=== PATIENT | female | born 1940 | race Caucasian/White ===

== ENCOUNTER 2019-08-31 07:14 | Outpatient (CLI) | payer MEDICARE, BC, SELFPAY ==
[2019-08-31 08:32] LABS: Basophils Percent Auto 0.3 % (0.2-1.2); Eosinophils Absolute Auto 0.1 K/mm3 (0-0.3); Eosinophils Percent Auto 1.1 % (0-4.4); Hematocrit 39.5 % (37.0-47.0); Immature Granulocyte Absolute 0.02 K/mm3 (0.00-0.031); Immature Granulocyte Percent A 0.3 % (0-0.5); Immature Platelet Fraction Pct 10.1 % (0.9-11.2); Lymphocytes Absolute Auto 1.62 K/mm3 (0.9-3.2); Lymphocytes Percent Auto 24.4 % (18.3-44.2); Mean Corpuscular HGB Conc 32.9 g/dl (32-36); Mean Platelet Volume 12.8 fl (7.4-10.4); Monocytes Absolute Auto 0.7 K/mm3 (0.1-0.6); Monocytes Percent Auto 9.9 % (2.6-8.5); Neutrophils Absolute Auto 4.3 K/mm3 (1.3-6.7); Platelet Count Result 156 k/mm3 (150-375); Red Cell Distribution Width 13.3 % (11.5-14.5); White Blood Count 6.7 K/mm3 (4.5-10.0)
[2019-08-31 08:41] LABS: Cholesterol 139 mg/dL (0-200); HDL Direct 35 mg/dL; Triglycerides 123 mg/dL (<150)
[2019-08-31 08:42] LABS: Hemoglobin A1C 5.7 % (<5.7)
[2019-08-31 08:53] LABS: LDL Cholesterol Direct 86 mg/dL
[2019-08-31 09:03] LABS: Alanine Aminotransferase 13 U/L (4-35); Albumin Level 4.2 g/dL (3.5-5.1); Alkaline Phosphatase 54 U/L (38-126); Aspartate Amino Transferase 15 U/L (14-36); Bilirubin,Total 0.4 mg/dL (0.2-1.3); Blood Urea Nitrogen 32 mg/dL (7-17); Calcium 9.2 mg/dL (8.4-10.2); Carbon Dioxide 23 mmol/L (22-30); Chloride 106 mmol/L (98-107); Estimated Glomerular Filt Rate 36; Glucose 96 mg/dL (65-105); Potassium 4.3 mmol/L (3.4-5.0); Sodium 141 mmol/L (137-145)
[2019-08-31 09:08] LABS: MALB Creatinine Ratio 20.4 mg/g (0-30); Microalbumin Urine Random 11.4 mg/L (0-16.7)
[2019-08-31 09:37] LABS: Free T4 Free Thyroxine 0.79 ng/mL (0.78-2.19)
== END 2019-08-31 07:15 | disposition home or self-care (01) ==
PROVIDERS: PCP Family Medicine; Visit Provider Family Medicine
DX: E78.2 Mixed hyperlipidemia (principal); E11.9 Type 2 diabetes mellitus without complications
CPT/HCPCS: 36415; 80053; 80061; 82043; 83036; 84439; 84443; 85025; 85055

== ENCOUNTER 2020-04-05 13:39 | Outpatient (CLI) | payer MEDICARE, BC, SELFPAY ==
--- NOTE | ~2020-04-05 | MM_ITS ---
EXAMINATION: MM screening [facility] BI w jovani HISTORY: Screening mammogram TECHNIQUE: Craniocaudal and mediolateral oblique 3-D tomosynthesis images were obtained and synthetic 2-D images were generated. CAD analysis was submitted and interpreted. COMPARISON: 03/06/2019, 03/02/2018, 02/22/2017 bilateral digital screening mammogram examinations BREAST PARENCHYMAL COMPOSITION: There are scattered areas of fibroglandular density. FINDINGS: Stable low-density circumscribed opacity in the upper outer quadrant of the left breast pos teriorly, likely a benign intramammary lymph node. Occasional benign calcifications. There is no evid ence of suspicious mass, calcification, or architectural distortion to suggest malignancy in either b reast. There has been no suspicious interval change. IMPRESSION: 1. No mammographic evidence of malignancy. 2. Recommend routine screening mammography in one year. BI-RADS Category 2: Benign finding(s). Reviewed, dictated and finalized at location A.
--- NOTE | ~2020-04-05 | DEXA_ITS ---
Bone Density Report Name: Cat Tolbert Age: 79 Sex: Female Ethnicity: White Date of : 1940 Indication: osteopenia; Referring Provider: KRYSTA BENAVIDEZ Study: Bone densitometry was performed. Exam Date: April 05, 2020 Accession number: [id number] Bone Density: Region BMD T-score Z-score Classification AP Spine (L1-L4) 0.993 -0.5 2.2 Normal Femoral Neck (Left) 0.634 -1.9 0.4 Osteopenia Total Hip (Left) 0.761 -1.5 0.6 Osteopenia Total Hip Bilateral Avg 0.773 -1.4 0.7 Osteopenia Femoral Neck (Right) 0.722 -1.1 1.2 Osteopenia Total Hip (Right) 0.784 -1.3 0.8 Osteopenia World Health Organization criteria for BMD impression classify patients as: Normal (T-score at or above -1.0), Osteopenia (T-score between -1.0 and -2.5), or Osteoporosis (T-score at or below -2.5). 10-year Fracture Risk(1): Major Osteoporotic Fracture 16% Hip Fracture 7.0% Reported Risk Factors: [place] (), Neck BMD=0.634, BMI=24.0, smoking (1) FRAX(R) Version 3.08. Fracture probability calculated for an untreated patient. Fracture probability may be lower if the patient has received treatment. Previous Exams: Region Exam Age BMD T-score BMD Change BMD Change Date g/cm2 vs Baseline vs Previous AP Spine(L1-L4) 04/05/2020 79 0.993 -0.5 -0.042(-4.1%)# 0.009(0.9%) 03/21/2015 74 0.984 -0.6 -0.051(-4.9%)# -0.051(-4.9%)# 07/30/2003 62 1.035 -0.1 Total Hip(Left) 04/05/2020 79 0.761 -1.5 -0.114(-13.0%) -0.071(-8.5%)* 03/21/2015 74 0.832 -0.9 -0.043(-4.9%)# -0.043(-4.9%)# 07/30/2003 62 0.875 -0.5 Total Hip(Right) 04/05/2020 79 0.784 -1.3 N/A -1.6% 03/21/2015 74 0.797 -1.2 N/A N/A 07/30/2003 62 N/A N/A *Denotes significance at 95% confidence level, LSC for AP Spine = 0.022 g/cm2, LSC for Total Hip = 0.027 g/cm2 Clinical Information Provided by Patient: Smokes Has used the following medications: Fosamax (i.e. alendronate) Patient maximum height was 67 Menopause Age: 44 No regular weight bearing exercise Drinks caffeinated beverages Onset of menses at age 13 Number of children 2 Impression: The patient has low bone mass, based on the Left Femoral Neck T-score. The patient has an estimated ten-year risk of hip fracture of 7% and an estimated ten-year risk of major fracture of 16%, based on the WHO FRAX algorithm. The patient has risk factors, including: smoking. The Marianela
== END 2020-04-05 13:40 | disposition home or self-care (01) ==
LOC: ANHIMG 13:41
PROVIDERS: PCP Family Medicine; Visit Provider Family Medicine
DX: Z12.31 Encounter for screening mammogram for malignant neoplasm of breast (principal); Z78.0 Asymptomatic menopausal state; M85.89 Other specified disorders of bone density and structure, multiple sites
CPT/HCPCS: 77063; 77067; 77080

== ENCOUNTER 2020-05-02 10:13 | Outpatient (CLI) | payer MEDICARE, BC, SELFPAY ==
[2020-05-02 10:55] LABS: Alanine Aminotransferase 23 U/L (4-35); Albumin Level 4.5 g/dL (3.5-5.1); Alkaline Phosphatase 66 U/L (38-126); Anion Gap 5 mmol/L (8-16); Aspartate Amino Transferase 32 U/L (14-36); Bilirubin,Total 0.5 mg/dL (0.2-1.3); Blood Urea Nitrogen 22 mg/dL (7-17); Calcium 10.2 mg/dL (8.4-10.2); Carbon Dioxide 32 mmol/L (22-30); Chloride 103 mmol/L (98-107); Estimated Glomerular Filt Rate 48; Glucose 118 mg/dL (65-105); Potassium 5.3 mmol/L (3.4-5.0); Sodium 140 mmol/L (137-145)
[2020-05-02 11:25] LABS: Thyroid Stimulating Hormone 0.409 uIU/mL (0.465-4.680)
[2020-05-02 11:38] LABS: Free T4 Free Thyroxine 0.81 ng/mL (0.78-2.19)
== END 2020-05-02 10:14 | disposition home or self-care (01) ==
LOC: ANHLAB 10:16
PROVIDERS: PCP Family Medicine; Visit Provider Family Medicine
DX: E04.9 Nontoxic goiter, unspecified (principal); E03.9 Hypothyroidism, unspecified; E11.9 Type 2 diabetes mellitus without complications; I10 Essential (primary) hypertension
CPT/HCPCS: 36415; 80053; 83036; 84439; 84443

== ENCOUNTER 2020-05-27 10:33 | Outpatient (CLI) | payer MEDICARE, BC, SELFPAY ==
[2020-05-27 11:27] LABS: Immunoglobulin A 400 mg/dL (70-400)
[2020-05-31 22:44] LABS: Tissue Transglutaminase IgA Ab 1 U/mL (<4)
== END 2020-05-27 10:34 | disposition home or self-care (01) ==
PROVIDERS: PCP Family Medicine
DX: K52.832 Lymphocytic colitis (principal)
CPT/HCPCS: 36415; 82784; 83516

== ENCOUNTER 2020-06-19 12:33 | Outpatient (CLI) | payer MEDICARE, BC, SELFPAY ==
[2020-06-19 14:32] LABS: Free T4 Free Thyroxine 1.07 ng/mL (0.78-2.19)
== END 2020-06-19 12:34 | disposition home or self-care (01) ==
PROVIDERS: PCP Family Medicine; Visit Provider Family Medicine
DX: E03.9 Hypothyroidism, unspecified (principal)
CPT/HCPCS: 36415; 84439; 84443; 84480

== ENCOUNTER 2020-06-26 15:53 | Outpatient (CLI) | payer MEDICARE, BC, SELFPAY ==
[2020-06-26 16:39] LABS: Anion Gap 6 mmol/L (8-16); Blood Urea Nitrogen 20 mg/dL (7-17); Calcium 9.6 mg/dL (8.4-10.2); Carbon Dioxide 29 mmol/L (22-30); Chloride 105 mmol/L (98-107); Estimated Glomerular Filt Rate 53; Glucose 167 mg/dL (65-105); Potassium 3.7 mmol/L (3.4-5.0); Sodium 140 mmol/L (137-145)
== END 2020-06-26 15:54 | disposition home or self-care (01) ==
LOC: ANHLAB 15:55
PROVIDERS: PCP Family Medicine; Visit Provider Family Medicine
DX: E03.9 Hypothyroidism, unspecified (principal)
CPT/HCPCS: 36415; 80048

== ENCOUNTER 2020-09-19 09:38 | Outpatient (CLI) | payer MEDICARE, BC, SELFPAY ==
[2020-09-19 10:14] LABS: Alanine Aminotransferase 18 U/L (4-35); Albumin Level 4.1 g/dL (3.5-5.1); Alkaline Phosphatase 45 U/L (38-126); Anion Gap 3 mmol/L (8-16); Aspartate Amino Transferase 25 U/L (14-36); Bilirubin,Total 0.4 mg/dL (0.2-1.3); Blood Urea Nitrogen 23 mg/dL (7-17); Calcium 9.6 mg/dL (8.4-10.2); Carbon Dioxide 31 mmol/L (22-30); Chloride 107 mmol/L (98-107); Estimated Glomerular Filt Rate 60; Glucose 149 mg/dL (65-105); Potassium 4.1 mmol/L (3.4-5.0); Sodium 141 mmol/L (137-145)
[2020-09-19 10:41] LABS: Thyroid Stimulating Hormone 0.075 uIU/mL (0.465-4.680); Total Triiodothyronine (T3) 0.99 NG/ML (0.97-1.69)
[2020-09-19 10:51] LABS: Free T4 Free Thyroxine 0.95 ng/mL (0.78-2.19)
[2020-09-19 12:21] LABS: Erythrocyte Sedimentation Rate 43 mm/hr (0-20)
== END 2020-09-19 09:39 | disposition home or self-care (01) ==
LOC: ANHLAB 09:42
PROVIDERS: PCP Family Medicine; Visit Provider Family Medicine
DX: I10 Essential (primary) hypertension (principal); K51.90 Ulcerative colitis, unspecified, without complications; E03.9 Hypothyroidism, unspecified
CPT/HCPCS: 36415; 80053; 84439; 84443; 84480; 85652

== ENCOUNTER 2020-10-16 10:59 | Outpatient (CLI) | payer MEDICARE, BC, SELFPAY ==
[2020-10-16 11:30] LABS: Hemoglobin A1C 6.1 % (<5.7)
[2020-10-16 11:36] LABS: Alanine Aminotransferase 25 U/L (4-35); Albumin Level 4.4 g/dL (3.5-5.1); Alkaline Phosphatase 50 U/L (38-126); Anion Gap 4 mmol/L (8-16); Aspartate Amino Transferase 30 U/L (14-36); Bilirubin,Total 0.4 mg/dL (0.2-1.3); Blood Urea Nitrogen 27 mg/dL (7-17); Carbon Dioxide 30 mmol/L (22-30); Chloride 105 mmol/L (98-107); Estimated Glomerular Filt Rate 53; Glucose 102 mg/dL (65-105); Potassium 4.3 mmol/L (3.4-5.0); Sodium 139 mmol/L (137-145)
[2020-10-16 12:05] LABS: Thyroid Stimulating Hormone 0.235 uIU/mL (0.465-4.680); Total Triiodothyronine (T3) 0.95 NG/ML (0.97-1.69)
[2020-10-16 12:24] LABS: Free T4 Free Thyroxine 0.79 ng/mL (0.78-2.19)
== END 2020-10-16 11:00 | disposition home or self-care (01) ==
PROVIDERS: PCP Family Medicine; Visit Provider Family Medicine
DX: E03.9 Hypothyroidism, unspecified (principal); E11.9 Type 2 diabetes mellitus without complications; I10 Essential (primary) hypertension
CPT/HCPCS: 36415; 80053; 83036; 84439; 84443; 84480

== ENCOUNTER 2020-12-23 14:56 | Outpatient (CLI) | payer MEDICARE, BC, SELFPAY ==
[2020-12-23 16:07] LABS: Anion Gap 8 mmol/L (8-16); Blood Urea Nitrogen 32 mg/dL (7-17); Calcium 9.8 mg/dL (8.4-10.2); Carbon Dioxide 28 mmol/L (22-30); Chloride 106 mmol/L (98-107); Estimated Glomerular Filt Rate 36; Glucose 150 mg/dL (65-105); Potassium 3.9 mmol/L (3.4-5.0); Sodium 142 mmol/L (137-145)
[2020-12-23 16:20] LABS: Erythrocyte Sedimentation Rate 26 mm/hr (0-20)
[2020-12-23 17:52] LABS: Free T4 Free Thyroxine 0.86 ng/mL (0.78-2.19)
== END 2020-12-23 14:57 | disposition home or self-care (01) ==
PROVIDERS: PCP Family Medicine; Visit Provider Family Medicine
DX: E05.80 Other thyrotoxicosis without thyrotoxic crisis or storm (principal); K51.90 Ulcerative colitis, unspecified, without complications; I10 Essential (primary) hypertension
CPT/HCPCS: 36415; 80048; 84439; 84443; 85652

== ENCOUNTER 2020-12-27 11:27 | Outpatient (CLI) | payer MEDICARE, BC, SELFPAY ==
[2020-12-27 12:11] LABS: Cholesterol 133 mg/dL (0-200); HDL Direct 46 mg/dL; Triglycerides 135 mg/dL (<150)
[2020-12-27 12:22] LABS: LDL Cholesterol Direct 61 mg/dL
== END 2020-12-27 11:28 | disposition home or self-care (01) ==
LOC: ANHLAB 11:31
PROVIDERS: PCP Family Medicine; Visit Provider Internal Medicine Cardiovascular Disease
DX: I65.23 Occlusion and stenosis of bilateral carotid arteries (principal)
CPT/HCPCS: 36415; 80061

== ENCOUNTER 2021-04-08 09:13 | Outpatient (CLI) | payer MEDICARE, BC, SELFPAY ==
--- NOTE | ~2021-04-08 | MM_ITS ---
EXAMINATION: MM screening [facility] BI w jovani HISTORY: Screening mammogram TECHNIQUE: Craniocaudal and mediolateral oblique 3-D tomosynthesis images were obtained and synthetic 2-D images were generated. CAD analysis was submitted and interpreted. COMPARISON: 04/05/2020, 03/06/2019, 03/02/2018 BREAST PARENCHYMAL COMPOSITION: There are scattered areas of fibroglandular density. FINDINGS: There is stable architectural distortion the upper outer quadrant of the left breast, likel y related to prior biopsy. There is no evidence of suspicious mass, calcification, or architectural d istortion to suggest malignancy in either breast. There has been no suspicious interval change. IMPRESSION: 1. No mammographic evidence of malignancy. 2. Recommend routine screening mammography in one year. BI-RADS Category 2: Benign finding(s). Reviewed, dictated and finalized at location A.
== END 2021-04-08 09:14 | disposition home or self-care (01) ==
PROVIDERS: PCP Family Medicine; Visit Provider Family Medicine
DX: Z12.31 Encounter for screening mammogram for malignant neoplasm of breast (principal)
CPT/HCPCS: 77063; 77067

== ENCOUNTER 2021-04-28 11:55 | Outpatient (CLI) | payer MEDICARE, BC, SELFPAY ==
[2021-04-28 13:29] LABS: Alanine Aminotransferase 19 U/L (4-35); Albumin Level 4.2 g/dL (3.5-5.1); Alkaline Phosphatase 45 U/L (38-126); Anion Gap 6 mmol/L (8-16); Aspartate Amino Transferase 27 U/L (14-36); Bilirubin,Total 0.3 mg/dL (0.2-1.3); Blood Urea Nitrogen 23 mg/dL (7-17); Calcium 9.3 mg/dL (8.4-10.2); Carbon Dioxide 30 mmol/L (22-30); Chloride 106 mmol/L (98-107); Estimated Glomerular Filt Rate 60; Glucose 95 mg/dL (65-110); Potassium 4.3 mmol/L (3.4-5.0); Sodium 142 mmol/L (137-145)
== END 2021-04-28 11:56 | disposition home or self-care (01) ==
PROVIDERS: PCP Family Medicine; Visit Provider Family Medicine
DX: I10 Essential (primary) hypertension (principal); E11.9 Type 2 diabetes mellitus without complications
CPT/HCPCS: 36415; 80053; 83036

== ENCOUNTER 2021-06-02 10:52 | Outpatient (CLI) | payer MEDICARE, BC, SELFPAY ==
--- NOTE | ~2021-06-02 | CT_ITS ---
EXAMINATION: CT brain wo [facility] EXAM DATE: 06/02/2021 11:14 INDICATION: Fall, posterior head injury. TECHNIQUE: Spiral CT of the head was performed without contrast. Axial, coronal and sagittal images were reviewed. The dose-length product (DLP) for this examination was 681.00 mGy-cm. The exposure w as tailored according to patient size, and iterative reconstruction (ASIR) was used as additional dos e reduction technique. Comparison is made to prior examination from 10/05/2018. FINDINGS: There is no acute intraparenchymal hemorrhage. No evidence of intraparenchymal brain mass lesion. No evidence of acute infarction. Please note that initial head CT has limited sensitivity f or small or acute infarctions. There is moderate periventricular and subcortical hypodensity, nonspec ific but probably related to small vessel ischemic disease. There is mild to moderate prominence of the sulci and ventricles related to cerebral atrophy. There is intracranial carotid arterioscleros is. There are no extra-axial collections. There is no mass effect or midline shift. Patient has lawrence d bilateral ocular lens surgery. Soft tissue is unremarkable. Chronically opacified left maxillary sinus with wall thickening. IMPRESSION: 1. No acute intracranial findings. 2. Chronic age related findings. Reviewed, dictated and finalized at location B. STANT AT SURGERY
== END 2021-06-02 10:53 | disposition home or self-care (01) ==
PROVIDERS: PCP Family Medicine; Visit Provider Physician Assistant
DX: S09.90XA Unspecified injury of head, initial encounter (principal); X58.XXXA Exposure to other specified factors, initial encounter; Z79.01 Long term (current) use of anticoagulants
CPT/HCPCS: 70450

== ENCOUNTER 2021-08-14 07:58 | Outpatient (RCR) | payer MEDICARE, BC, SELFPAY ==
[2021-08-14] MEDS: ACETAMINOPHEN 325 MG TABLET 650 MG PO (08:32)
[2021-08-14] MEDS: diphenhydrAMINE HCl CAP 25 MG CAPSULE PO (08:32)
[2021-08-14] MEDS: FAMOTIDINE 20 MG TABLET PO (08:33)
[2021-08-14 08:38] VITALS: BP 133/66; PULSE 62; TEMP 36.2; O2SAT 98
[2021-08-14 10:04] VITALS: BP 124/51; PULSE 50; O2SAT 99
== END 2021-08-14 16:00 ==
LOC: AMCINF 07:58
PROVIDERS: PCP Nurse Practitioner Gerontology; Visit Provider Internal Medicine Hematology & Oncology
DX: U07.1 COVID-19 (principal); J44.9 Chronic obstructive pulmonary disease, unspecified
CPT/HCPCS: A9270; M0247; Q0247

== ENCOUNTER 2021-09-09 07:15 | Outpatient (CLI) | payer MEDICARE, BC, SELFPAY ==
[2021-09-09 08:02] LABS: Basophils Absolute Auto 0.1 K/mm3 (0.0-0.1); Basophils Percent Auto 0.6 % (0.2-1.2); Eosinophils Percent Auto 0.5 % (0-4.4); Hematocrit 41.4 % (37.0-47.0); Hemoglobin 13.4 g/dL (12.0-15.0); Immature Granulocyte Absolute 0.13 K/mm3 (0.00-0.031); Immature Granulocyte Percent A 1.5 % (0-0.5); Lymphocytes Absolute Auto 2.03 K/mm3 (0.9-3.2); Lymphocytes Percent Auto 23.6 % (18.3-44.2); Mean Corpuscular HGB Conc 32.4 g/dl (32-36); Mean Corpuscular Hemoglobin 31.5 pg (26-34); Mean Corpuscular Volume 97.4 fl (80-100); Mean Platelet Volume 11.3 fl (7.4-10.4); Monocytes Absolute Auto 0.8 K/mm3 (0.1-0.6); Monocytes Percent Auto 8.8 % (2.6-8.5); Neutrophils Absolute Auto 5.6 K/mm3 (1.3-6.7); Nucleated Red Blood Cells Perc 0.2 % (0.0-0.2); Platelet Count Result 170 k/mm3 (150-375); Red Blood Count 4.25 M/mm3 (4.2-5.4); Red Cell Distribution Width 14.1 % (11.5-14.5); White Blood Count 8.6 K/mm3 (4.5-10.0)
[2021-09-09 08:10] LABS: Alanine Aminotransferase 26 U/L (4-35); Albumin Level 4.1 g/dL (3.5-5.1); Alkaline Phosphatase 55 U/L (38-126); Anion Gap 5 mmol/L (8-16); Aspartate Amino Transferase 28 U/L (14-36); Bilirubin,Total 0.4 mg/dL (0.2-1.3); Blood Urea Nitrogen 20 mg/dL (7-17); Calcium 9.3 mg/dL (8.4-10.2); Carbon Dioxide 29 mmol/L (22-30); Chloride 107 mmol/L (98-107); Cholesterol 151 mg/dL (0-200); Estimated Glomerular Filt Rate 60; Glucose 155 mg/dL (65-110); HDL Direct 45 mg/dL; Potassium 4.2 mmol/L (3.4-5.0); Sodium 141 mmol/L (137-145); Triglycerides 124 mg/dL (<150)
[2021-09-09 08:21] LABS: LDL Cholesterol Direct 77 mg/dL
[2021-09-09 10:18] LABS: Hemoglobin A1C 6.5 % (<5.7)
== END 2021-09-09 07:16 | disposition home or self-care (01) ==
PROVIDERS: PCP Family Medicine; Visit Provider Nurse Practitioner Gerontology
DX: E03.9 Hypothyroidism, unspecified (principal); E11.9 Type 2 diabetes mellitus without complications; I10 Essential (primary) hypertension; Z79.899 Other long term (current) drug therapy
CPT/HCPCS: 36415; 80053; 80061; 83036; 84443; 85025

== ENCOUNTER 2021-09-17 09:17 | Outpatient (CLI) | payer MEDICARE, BC, SELFPAY ==
--- NOTE | ~2021-09-17 | CT_ITS ---
EXAMINATION: CT diagnostic chest wo con EXAM DATE: 09/17/2021 09:36 INDICATION: J44.9 - Chronic obstructive pulmonary disease, unspecified . Shortness of breath. TECHNIQUE: Spiral CT of the chest without contrast. Axial, coronal and sagittal images of the chest were reviewed. Coronal maximum intensity pixel images of chest reviewed. The dose-length product (D LP) for this examination was 75.09 mGy-cm. The exposure was tailored according to patient size (auto mA exposure control), and iterative reconstruction (ASIR) was used as additional dose reduction tech nique. There is no prior study for comparison. FINDINGS: Mild emphysema and moderate hyperinflation. Some tortuosity of the thoracic aorta. Small a mount of upper lobe post infectious residua. There are no pleural or pericardial effusions. Tracheo bronchial tree is patent. There is no mediastinal, hilar or axillary lymphadenopathy. There is no pneumothorax. Heart normal in size. There is mild coronary arterial calcification, arterial scle rosis. There are cholecystectomy clips. There is thoracic spondylosis without osteoblastic or osteo lytic lesions identified. IMPRESSION: Moderate hyperinflation, mild emphysema. Post infectious residua. Reviewed, dictated and finalized at location B. DENT SERVICES COORDINATOR
== END 2021-09-17 09:18 | disposition home or self-care (01) ==
LOC: ANHIMG 09:23
PROVIDERS: PCP Family Medicine; Visit Provider Nurse Practitioner Gerontology
DX: R91.8 Other nonspecific abnormal finding of lung field (principal); J43.9 Emphysema, unspecified
CPT/HCPCS: 71250

== ENCOUNTER 2021-10-27 10:42 | Outpatient (CLI) | payer MEDICARE, BC, SELFPAY ==
--- NOTE | ~2021-10-27 | XR_ITS ---
EXAMINATION: XR chest 2V Exam Date/Time: 10/27/2021 10:50 CDT CLINICAL HISTORY: R05.9 - Cough, SOB X 2 WKS. HX AFIB, COPD Comparison: 11/03/2018. RESULT: Lines, tubes, and devices: None. Lungs and pleura: Senescent changes, otherwise clear. Cardiomediastinal silhouette: Stable aortic ectasia and arch calcifications. Other: No acute osseous or upper abdominal finding. Stable osteopenia and multilevel thoracic verteb ral body compression deformities. IMPRESSION: No acute cardiopulmonary process. Reviewed, dictated and finalized at location K.
== END 2021-10-27 10:43 | disposition home or self-care (01) ==
PROVIDERS: PCP Family Medicine; Visit Provider Nurse Practitioner Gerontology
DX: R05.9 Cough, unspecified (principal); R06.02 Shortness of breath
CPT/HCPCS: 71046

== ENCOUNTER 2021-11-20 08:22 | Emergency (ER) | payer MEDICARE, BC, SELFPAY ==
--- NOTE | 2021-11-20 08:27 | PC.NURSE ---
Patient arrives with MOISES assisted compression device in place. I gel in place with BVM ventilation. IO to left leg in place - infusing 2L NS wide open. 0825 - Epi 0828 - Patient intubated utilizing GlideScope and Bougie - 7.5 cm tube - 24 cm at the lip 0828 - pulse check - asystole 0829 - Epi 0831 - 20 mega PIV placed in R AC. 0832 - Epi 0836 - CPR stopped at family request. pulse check - patient remains in asystole.
--- NOTE | 2021-11-20 08:44 | PC.NURSE ---
Deana @ energy trader office notified at this time.
--- NOTE | 2021-11-20 09:36 | PC.NURSE ---
hallie at manager event office OK to release to home at this time.
--- NOTE | 2021-11-20 09:38 | PC.NURSE ---
MTS - updated that mattress maker released to home. PCT at bedside to pull lines and tubes.
--- NOTE | 2021-11-20 09:39 | PC.NURSE ---
Patient's wedding ring removed at family request and given to patient's daughter in law. Per patient's all other personal belonging (clothing and shoes) should be disposed of in the ED.
--- NOTE | 2021-11-20 09:59 | PC.NURSE ---
[place] [facility] [place] [place]
--- NOTE | 2021-11-20 10:55 | PC.NURSE ---
Received phone call from [facility]. Patient is a candidate for organ donation. [facility] factory representative states they will be contacting the family and asked that we hold patient in the morgue and do not release to home yet. home made aware by ED investment officer.
--- NOTE | 2021-11-20 16:27 | ED.CPR ---
HPI - CPR General Chief Complaint: Cardiac Arrest/CPR Stated Complaint: cardiac arrest Source: family and EMS Mode of arrival: EMS Limitations: clinical condition History of Present Illness HPI narrative: Pt was walking with another person and she felt lightheaded and then went unresponsive and fell, she awoke briefly and tried to get up and again went unresponsive. said she didn't have pulse. CPR started and EMS called. On EMS arrival pt in asystole. I gel airway placed, pt given 3 rounds of epi in route without response. Total down time around 30 minutes on arrival here. complaint: collapsed during activity Onset (ago): minute(s) (30) Timing confirmed by: spouse Place: street Bystander CPR performed: Yes Initial findings in the field: unresponsive and no pulse ROSC in the field: No Associated injuries: Yes Related Data Home Medications Medication Instructions Recorded Confirmed fish,safflwr,flax,borag 1 cap PO DAILY 06/12/19 08/14/21 oils-om3,6,9 #2 800 mg-200 mg-150 mg-50 mg cap multivitamin 1 tablet PO DAILY 06/12/19 08/14/21 glucosamine sulfate 500 mg tablet 500 mg PO BID 06/29/19 08/14/21 Allergies Allergy/AdvReac Type Severity Reaction Status Date / Time levofloxacin Allergy Unknown Unknown Verified 11/20/21 14:30 Quinolones Allergy Unknown Unknown Verified 11/20/21 14:30 Review of Systems Review of Systems: ROS unobtainable: Yes unobtainable due to mental status PMFSH Past Medical History Medical History Afib Anticoagulant long-term use Arthritis Arthritis of left subtalar joint Blood glucose elevated Diabetes HTN (hypertension) Hypothyroidism (acquired) Left foot pain Lymphocytic colitis Osteopenia after menopause Osteoporosis Peroneal tendinitis of left lower leg Sleep apnea Ulcerative colitis Surgical History Surgical History H/O joint replacement History of appendectomy Family History Family History (System 11/20/21 @ 14:30 by Jennifer Alvarado) Mother Patient's mother is in good health Father Family history of lung cancer Patient's father is Other Family history of alcoholism Family history of arthritis Social History Social History (System 11/20/21 @ 14:30 by Jennifer Alvarado) Social History: Smoking status: Former smoker Tobacco type: cigarettes Second hand tobacco smoke exposure: Yes Smoking end date: 07/19/17 Alcohol intake: never Substance use: never Substance use type: does not use Additional occupation/education comments: [employer] Gender identity (if verbalized by the patient): Female Sexual Orientation (if Verbalized by the Patient): Straight or Heterosexual Exam Const: Limitations: other limitations (unresponsive) HENMT: Other: contusion to forehead Eyes: Other: pupils fixed and dilated Neck: Neck: normal visual inspection Chest: Other: Wesley CPR device in place and compressing Resp: Auscultation: breath sounds absent Other: BS with bagged respirations Cardio: Other: no pulse without CPR Skin: General skin exam: pallor Neuro: Other: unresponsive Extrem: General: no pedal edema Course Course Emergency Course: CPR in progress, I gel removed and pt intubated with 7.5 ETT with bougies assist, positive color change and equal BS b/l. pt given Epi per ACLS protocol. Family informed of dire situation, family wished to see pt before calling code. Family present with pt for short time and asked for resuscitation effort to cease. Code called. See Code sheet for times and details Procedures Intubation Intubation #1: Intubation Date: 11/20/21 sedative: none Laryngoscope: fiber optic video scope Assist Device Used: Bougie Tube Size (cm): 7.5 Method of Intubation: orotracheal Number of Attempts: 1 Tube Secured Depth
== END 2021-11-20 10:05 | disposition expired ==
PROVIDERS: Emergency Provider Emergency Medicine; PCP Family Medicine
DX: I46.9 Cardiac arrest, cause unspecified (principal); I48.91 Unspecified atrial fibrillation; E11.9 Type 2 diabetes mellitus without complications; I10 Essential (primary) hypertension; M19.90 Unspecified osteoarthritis, unspecified site; M19.072 Primary osteoarthritis, left ankle and foot; M85.80 Other specified disorders of bone density and structure, unspecified site; M81.0 Age-related osteoporosis without current pathological fracture; G47.30 Sleep apnea, unspecified; Z96.60 Presence of unspecified orthopedic joint implant; Z87.891 Personal history of nicotine dependence; Z79.01 Long term (current) use of anticoagulants
CPT/HCPCS: 31500; 92950; 99285; J0171